=== PATIENT | female | born 1960 | race Two or more races ===

== ENCOUNTER 2021-11-26 15:31 | Emergency (ER) | payer OTHER ==
[~2021-11-26] VITALS: Ht 160 cm; Wt 69.9 kg
== END 2021-11-26 19:41 | disposition home or self-care (01) ==
LOC: ER 15:31
DX: T81.31XA Disruption of external operation (surgical) wound, not elsewhere classified, initial encounter (principal); T81.41XA Infection following a procedure, superficial incisional surgical site, initial encounter; N61.0 Mastitis without abscess; X58.XXXA Exposure to other specified factors, initial encounter; Y93.9 Activity, unspecified; Y92.9 Unspecified place or not applicable; Y99.9 Unspecified external cause status